=== PATIENT | female | born 1985 | race Caucasian/White ===

== ENCOUNTER → 2024-10-25 10:17 | Outpatient (REF) | payer OTHER, SELFPAY | LOC: WDC 10:17 | PROVIDERS: ATTENDING PHYSICIAN Obstetrics & Gynecology Gynecology | DX: Z12.31 Encounter for screening mammogram for malignant neoplasm of breast (principal) | CPT/HCPCS: 77063; 77067 ==

== ENCOUNTER → 2025-08-17 12:51 | Outpatient (REF) | payer OTHER, SELFPAY | LOC: HWRAD 12:51 | PROVIDERS: ATTENDING PHYSICIAN Obstetrics & Gynecology Gynecology | DX: N93.9 Abnormal uterine and vaginal bleeding, unspecified (principal) | CPT/HCPCS: 76830; 76856 ==

== ENCOUNTER → 2025-08-24 09:39 | Outpatient (REF) | payer OTHER, SELFPAY | LOC: WDC 09:39 | PROVIDERS: ATTENDING PHYSICIAN Obstetrics & Gynecology Gynecology | DX: N64.59 Other signs and symptoms in breast (principal) | CPT/HCPCS: 76642; 77062; 77066 ==